=== PATIENT | male | born 1945 | race Caucasian/White ===

== ENCOUNTER 2016-06-20 21:17 | Emergency (ER) | payer OTHER, MEDICAID ==
[~2016-06-20 21:17] MED LIST: AMO500 PO; COL0.6 PO; COL100 PO; LOR PO; LORATADINE10 MG PO; OMEPRAZOLE DR20 M1 PO; PANTOPRAZOLE SO40 M1 PO; ULORIC40 M1 PO; VITAMIN D2000 I2 PO; VOL50 PO
[2016-06-20 22:24] VITALS: BP 148/82
== END 2016-06-20 22:24 | disposition home or self-care (01) ==
LOC: ED 21:17
DX: H11.32 Conjunctival hemorrhage, left eye (principal)

== ENCOUNTER 2017-10-14 17:42 | Inpatient (IN) | payer OTHER, MEDICAID ==
[~2017-10-14] VITALS: Ht 167.6 cm; Wt 58.3 kg
[2017-10-14 18:45] LABS: BASOPHIL % 0.3 % (0-2); PLATELET COUNT 270 x10^3mcL (130-400)
[2017-10-14 18:58] LABS: ALKALINE PHOSPHATASE 102 U/L (46-116); ALT/SGPT 15 U/L (16-63); AST/SGOT 30 U/L (15-37); BILIRUBIN TOTAL 0.6 mg/dL (0.20-1.00); CARBON DIOXIDE 25.9 mmol/L (21-32); CREATININE SERUM 0.7 mg/dL (0.7-1.3); GFR1 > 60 mL/min; GLUCOSE SERUM 101 mg/dL (74-106); RED CELL DISTRIBUTION WIDTH 19.8 % (11.5-14.5); TOTAL PROTEIN, SERUM 7.1 g/dL (6.4-8.2)
[2017-10-14 19:07] LABS: CHLORIDE SERUM 94 mmol/L (98-107); POTASSIUM SERUM 3.2 mmol/L (3.5-5.1); SODIUM SERUM 133 mmol/L (136-145)
[2017-10-14 20:47] LABS: MAGNESIUM 1.6 mg/dL (1.8-2.4); PHOSPHOROUS 2.6 mg/dL (2.5-4.9)
[2017-10-14 20:49] VITALS: BP 147/73
[2017-10-14 20:49] LABS: CHOLESTEROL/HDL RATIO 1.2
[2017-10-14 20:56] LABS: T3 TOTAL 0.73 ng/mL
[2017-10-14 20:57] LABS: FREE T4 0.91 ng/dL (0.76-1.46)
[2017-10-14 21:07] LABS: FREE THYROXINE INDEX 1.6 ug/dL (1.4-4.5); T4(THYROXINE) 4.6 ug/dL (4.7-13.3)
[2017-10-14 21:54] VITALS: Ht 167.6 cm; Wt 58.3 kg
[2017-10-15 06:11] VITALS: BP 131/67
[2017-10-15 06:55] LABS: BASOPHIL % 0.1 % (0-2); PLATELET COUNT 256 x10^3mcL (130-400)
[2017-10-15 07:08] LABS: CALCIUM 8.6 mg/dL (8.5-10.1); CARBON DIOXIDE 28.6 mmol/L (21-32); CHLORIDE SERUM 98 mmol/L (98-107); CREATININE SERUM 0.9 mg/dL (0.7-1.3); GFR1 > 60 mL/min; GLUCOSE SERUM 123 mg/dL (74-106); MAGNESIUM 2.3 mg/dL (1.8-2.4); PHOSPHOROUS 3.2 mg/dL (2.5-4.9); POTASSIUM SERUM 4.2 mmol/L (3.5-5.1); SODIUM SERUM 135 mmol/L (136-145)
[2017-10-15 07:23] LABS: RED CELL DISTRIBUTION WIDTH 20.2 % (11.5-14.5)
[2017-10-15 09:10] VITALS: BP 143/69
[2017-10-15 13:58] VITALS: BP 131/63
[2017-10-15 17:20] VITALS: BP 137/73
[2017-10-15 19:21] LABS: microscopic required? NO
[2017-10-15 19:24] LABS: urine erythrocyte NEGATIVE (NEGATIVE)
[2017-10-15 19:32] LABS: AMPHETAMINE QUAL UR NONE DETECTED (See below)
[2017-10-15 20:16] VITALS: BP 130/64
[2017-10-16 05:20] VITALS: BP 142/64
[2017-10-16 07:18] LABS: BASOPHIL % 0.1 % (0-2); PLATELET COUNT 233 x10^3mcL (130-400)
[2017-10-16 07:25] LABS: RED CELL DISTRIBUTION WIDTH 20.6 % (11.5-14.5)
[2017-10-16 07:29] LABS: CALCIUM 8.8 mg/dL (8.5-10.1); CARBON DIOXIDE 26.5 mmol/L (21-32); CHLORIDE SERUM 101 mmol/L (98-107); CREATININE SERUM 0.8 mg/dL (0.7-1.3); GFR1 > 60 mL/min; GLUCOSE SERUM 116 mg/dL (74-106); MAGNESIUM 1.7 mg/dL (1.8-2.4); PHOSPHOROUS 2.7 mg/dL (2.5-4.9); POTASSIUM SERUM 3.7 mmol/L (3.5-5.1); SODIUM SERUM 136 mmol/L (136-145)
[2017-10-16 09:55] VITALS: BP 124/57
[2017-10-16 13:23] VITALS: BP 127/64
[2017-10-16 14:25] VITALS: BP 124/57
== END 2017-10-16 15:20 | disposition home or self-care (01) | DRG 392 ==
LOC: ED 17:42 → DU 20:07
PROVIDERS: Emergency Medicine; Family Medicine
DX: K21.9 Gastro-esophageal reflux disease without esophagitis (principal); E87.1 Hypo-osmolality and hyponatremia; E87.6 Hypokalemia; E83.42 Hypomagnesemia; E11.65 Type 2 diabetes mellitus with hyperglycemia; E11.51 Type 2 diabetes mellitus with diabetic peripheral angiopathy without gangrene; I08.3 Combined rheumatic disorders of mitral, aortic and tricuspid valves; I37.1 Nonrheumatic pulmonary valve insufficiency; M10.9 Gout, unspecified; M25.519 Pain in unspecified shoulder; E78.1 Pure hyperglyceridemia; I25.2 Old myocardial infarction; Z68.20 Body mass index [BMI] 20.0-20.9, adult; Z87.442 Personal history of urinary calculi; Z85.038 Personal history of other malignant neoplasm of large intestine; Z85.028 Personal history of other malignant neoplasm of stomach
CPT/HCPCS: 83880; 84439; J1885; J3475; J7030; Q0092

== ENCOUNTER 2018-04-25 22:05 | Emergency (ER) | payer OTHER, MEDICAID | END 2018-04-26 02:33 | disposition home or self-care (01) | LOC: ED 22:05 ==

== ENCOUNTER 2018-04-29 18:58 | Inpatient (IN) | payer OTHER, MEDICAID ==
[~2018-04-29] VITALS: Ht 153.7 cm; Wt 75.5 kg
[2018-04-29 19:11] VITALS: Ht 153.7 cm; Wt 75.5 kg
[2018-04-29 20:47] LABS: PLATELET COUNT 155 x10^3mcL (130-400)
[2018-04-29 20:52] LABS: CALCIUM 7.6 mg/dL (8.5-10.1); CARBON DIOXIDE 28.2 mmol/L (21-32); CHLORIDE SERUM 97 mmol/L (98-107); CREATININE SERUM 1.3 mg/dL (0.7-1.3); GLUCOSE SERUM 143 mg/dL (74-106); POTASSIUM SERUM 4.1 mmol/L (3.5-5.1); SODIUM SERUM 131 mmol/L (136-145)
[2018-04-29 20:57] LABS: ALKALINE PHOSPHATASE 89 U/L (46-116); ALT/SGPT 29 U/L (16-63); AST/SGOT 69 U/L (15-37); BILIRUBIN TOTAL 0.41 mg/dL (0.20-1.00)
[2018-04-29 20:58] LABS: ALBUMIN 2.3 g/dL (3.4-5.0)
[2018-04-29 21:22] LABS: microscopic required? NO
[2018-04-29 21:25] LABS: RED CELL DISTRIBUTION WIDTH 20.4 % (11.5-14.5)
[2018-04-29 21:27] LABS: CK-MB 2.2 ng/mL (0-3.6)
[2018-04-29 21:31] LABS: BAND NEUTROPHIL 0 % (0-10); BASOPHIL 0 % (0-2); MONOCYTE 11 % (0-7); SEGMENTED NEUTROPHILS 71 % (37-75)
[2018-04-29 21:32] LABS: UA SPECIFIC GRAVITY <=1.005 (1.005-1.035); urine erythrocyte NEGATIVE (NEGATIVE)
[2018-04-29 21:32] LABS: rbc morphology (normal/abnorm) ABNORMAL (NORMAL)
[2018-04-29] MEDS ORDERED: NORCO1 TA1 PO (23:14)
[2018-04-29] MEDS ORDERED: COLCHICINE0.6 M1 PO (23:16)
[2018-04-29] MEDS ORDERED: ULORIC40 M1 PO (23:18)
[2018-04-30] VITALS (7 sets, daily range): BP systolic 112–130; BP diastolic 54–68
[2018-04-30 02:23] LABS: AMPHETAMINE QUAL UR NONE DETECTED (See below)
[2018-04-30 02:24] LABS: MAGNESIUM 1.9 mg/dL (1.8-2.4); PHOSPHOROUS 2.8 mg/dL (2.5-4.9)
[2018-04-30 02:25] LABS: CHOLESTEROL/HDL RATIO 1.3
[2018-04-30 02:27] LABS: FREE THYROXINE INDEX 2.1 ug/dL (1.4-4.5); T3 TOTAL 0.79 ng/mL; T4(THYROXINE) 4.9 ug/dL (4.7-13.3)
[2018-04-30 05:24] LABS: CALCIUM 7.8 mg/dL (8.5-10.1); CHLORIDE SERUM 103 mmol/L (98-107); CREATININE SERUM 1.1 mg/dL (0.7-1.3); GLUCOSE SERUM 136 mg/dL (74-106); MAGNESIUM 1.7 mg/dL (1.8-2.4); PHOSPHOROUS 3.1 mg/dL (2.5-4.9); POTASSIUM SERUM 3.4 mmol/L (3.5-5.1); SODIUM SERUM 136 mmol/L (136-145)
[2018-04-30 05:37] LABS: PLATELET COUNT 131 x10^3mcL (130-400)
[2018-04-30 05:59] LABS: BASOPHIL % 0.3 % (0-2); RED CELL DISTRIBUTION WIDTH 21.4 % (11.5-14.5)
[2018-04-30 06:01] LABS: rbc morphology (normal/abnorm) ABNORMAL (NORMAL)
[2018-04-30] MEDS ORDERED: VITB12I IM (14:27)
[2018-04-30 19:27] LABS: PLATELET COUNT 136 x10^3mcL (130-400)
[2018-04-30 19:28] LABS: RED CELL DISTRIBUTION WIDTH 17.7 % (11.5-14.5)
[2018-04-30 20:06] LABS: MONOCYTE 19 % (0-7); SEGMENTED NEUTROPHILS 57 % (37-75)
[2018-04-30 20:08] LABS: rbc morphology (normal/abnorm) ABNORMAL (NORMAL)
[2018-04-30 20:09] LABS: PLATELET MORPHOLOGY PLATELETS NORMAL
== END 2018-04-30 20:40 | disposition short-term general hospital (02) | DRG 811 ==
LOC: ED 18:58 → MU 04-30 03:18
PROVIDERS: Emergency Medicine; Family Medicine; ADMIT Internal Medicine
PROC: 30233N1 Transfusion of Nonautologous Red Blood Cells into Peripheral Vein, Percutaneous Approach (ICD-10-PCS; principal; 2018-04-30)
DX: D51.1 Vitamin B12 deficiency anemia due to selective vitamin B12 malabsorption with proteinuria (principal); E43 Unspecified severe protein-calorie malnutrition; E87.1 Hypo-osmolality and hyponatremia; E87.2 Acidosis; E86.0 Dehydration; G90.8 Other disorders of autonomic nervous system; E11.65 Type 2 diabetes mellitus with hyperglycemia; E83.42 Hypomagnesemia; R74.0 Nonspecific elevation of levels of transaminase and lactic acid dehydrogenase [LDH]; M10.9 Gout, unspecified; E03.9 Hypothyroidism, unspecified; F10.10 Alcohol abuse, uncomplicated; Z68.23 Body mass index [BMI] 23.0-23.9, adult; Z87.442 Personal history of urinary calculi; Z85.020 Personal history of malignant carcinoid tumor of stomach; Z22.322 Carrier or suspected carrier of Methicillin resistant Staphylococcus aureus
CPT/HCPCS: 83880; 84439; G0480; J3420; J7030; J7050; P9016; Q0092; Q0163; Q9966

== ENCOUNTER 2019-10-19 19:25 | Emergency (ER) | payer OTHER, MEDICAID ==
[~2019-10-19] VITALS: Ht 162.6 cm; Wt 65.8 kg
[~2019-10-19 19:25] MED LIST changes: +COLCHICINE0.6 M1 PO; +NORCO1 TA1 PO; +VITB12I IM
[2019-10-19 19:40] VITALS: Ht 162.6 cm; Wt 65.8 kg
[2019-10-19 20:26] LABS: BASOPHIL % 0.6 % (0-2); PLATELET COUNT 170 x10^3mcL (130-400)
[2019-10-19 20:28] LABS: RED CELL DISTRIBUTION WIDTH 17.1 % (11.5-14.5)
[2019-10-19 20:45] LABS: CALCIUM 7.4 mg/dL (8.5-10.1); CARBON DIOXIDE 20.9 mmol/L (21-32); CHLORIDE SERUM 94 mmol/L (98-107); CREATININE SERUM 0.9 mg/dL (0.7-1.3); GLUCOSE SERUM 204 mg/dL (74-106); POTASSIUM SERUM 3.6 mmol/L (3.5-5.1); SODIUM SERUM 132 mmol/L (136-145)
[2019-10-19 20:50] LABS: ALKALINE PHOSPHATASE 96 U/L (46-116); ALT/SGPT 20 U/L (16-63); AST/SGOT 51 U/L (15-37); BILIRUBIN TOTAL 1.6 mg/dL (0.20-1.00); LIPASE 42 IU/L (73-393); TOTAL PROTEIN, SERUM 6.6 g/dL (6.4-8.2)
[2019-10-19 21:10] LABS: ALBUMIN 2.8 g/dL (3.4-5.0)
[2019-10-20 01:51] VITALS: BP 144/81
== END 2019-10-20 01:51 | disposition short-term general hospital (02) ==
LOC: ED 19:25
PROVIDERS: Emergency Medicine
DX: K52.9 Noninfective gastroenteritis and colitis, unspecified (principal); M10.9 Gout, unspecified; F10.10 Alcohol abuse, uncomplicated; Z90.49 Acquired absence of other specified parts of digestive tract; Z87.442 Personal history of urinary calculi; Z85.038 Personal history of other malignant neoplasm of large intestine
CPT/HCPCS: J2405; J2543; J3490; J7030; Q0092